=== PATIENT | male | born 1995 | race Caucasian/White ===

== ENCOUNTER 2017-06-13 23:20 | Emergency (ER) | payer OTHER ==
[~2017-06-13] VITALS: Ht 175.3 cm; Wt 77.7 kg
[2017-06-13 23:28] VITALS: BP 108/71; PULSE 91; TEMP 36.8; O2SAT 98; Ht 175.3 cm; Wt 77.7 kg
[2017-06-13] MEDS ORDERED: AMOXICILLIN 250 MG CAP PO STA (23:49)
[2017-06-13] MEDS ORDERED: AMOX500C3 PO (23:52)
--- NOTE | 2017-06-14 00:06 | EMERGENCY ROOM VISIT NOTE ---
History First contact with patient: 23:37 Chief Complaint: DENTAL PAIN Stated Complaint: CHIPPED TOOTH Nursing Triage Summary: pt was playing [employer] with friends and took the handle of a broom to the mouth which chipped his upper right front tooth, pt c/o some sensitivity when breathing in History of Present Illness The patient is a 21 year old male who presents to the Emergency Room with complaints of dental fracture after getting hit in the mouth by a broom while playing broom ball tonight. No alcohol tonight. Patient denies head injury, facial pain, swallowing the tooth, jaw pain, neck pain, loss of consciousness or any other medical complaints. Tetanus is current. He does not have a dentist in the area. Review of Systems See HPI for pertinent positives & negatives. A total of 6 systems reviewed and were otherwise negative. Past Medical/Surgical History None Social History Smoking Status: Never Smoker Smokeless Tobacco Use: No Alcohol Use: none Drug Use: none Occupation Status: [employer] student Current/Historical Medications Scheduled Amoxicillin (Amoxil), 500 MG PO TID Physical Exam Vital Signs Date Time Temp Pulse Resp B/P (MAP) Pulse Ox O2 Delivery O2 Flow Rate FiO2 06/13/17 23:28 36.8 91 18 108/71 98 Room Air Physical Exam PHYSICAL EXAM: VITALS: Vitals are noted on the nurse's note and reviewed by myself. Vital signs stable. GENERAL: Pleasant male, in no acute distress, nondiaphoretic, well-developed well-nourished. SKIN: The skin was without obvious lacerations or abrasions. Capillary reflex less than 2 seconds. HEAD: Normocephalic atraumatic. EARS: External auditory canals clear, tympanic membranes pearly burciaga without erythema or effusion bilaterally. No hemotympanums. No juarez sign. No mastoid tenderness. EYES: Pupils equal round and reactive to light and accommodation. Conjunctivae without injection, sclerae without icterus. Extraocular movements intact. NOSE: Patent, turbinates without inflammation or discharge. No sinus tenderness. No septal hematoma or bleeding. FACE: No facial bone tenderness. Full range of motion of the jaw without tenderness. MOUTH: Mucous membranes moist. Pharynx without erythema or exudate. Uvula midline. Airway patent. Tongue does not deviate. Dental exam: Right upper central incisor with dental fracture to the dentine that is not loose. No other injuries noted. Overall dental hygiene good. No bleeding NECK: Supple without nuchal rigidity. Cervical spine is nontender. Full range of motion of the neck without tenderness. No JVD. HEART: Regular rate and rhythm without murmurs gallops or rubs. LUNGS: Clear to auscultation bilaterally without wheezes, rales or rhonchi. No dullness to percussion. No retractions or accessory muscle use. MUSCULOSKELETAL: No erythema, edema or atrophy to extremities. NEURO: Patient was alert and oriented to person place and time. No focal neurological deficits. Medical Decision & Procedures Medications Administered Medications (Trade) Dose Ordered Sig/Malcolm Route Start Time Stop Time Status Last Admin Dose Admin Amoxicillin (Amoxil Cap) 1,500 mg NOW STAT PO 06/13/17 23:49 06/13/17 23:50 DC 06/13/17 23:49 1,500 MG ED Course Prior records reviewed and summarized as above. Triage Nursing notes reviewed. Additional history obtained from friends The patient's history was concerning for dental injury Differential diagnosis: Etiologies such as dental fracture, dental trauma, facial injury, as well as others were entertained.. Physical examination: Dental fracture to the dentine ER treatment provided: Dental wax was applied and patient was given wax to go home with. He was started on antibiotics. On reassessment the patient felt better. Diagnostics interpreted by me: Deferred This appears to be dental fracture. Patient was strongly encouraged to see oral surgeon for definitive care for his dental injury. He was given contact information. He was started on antibiotics. The tooth was covered in wax as it extended to the dentine. Patient is advised to return to the ER immediately for fevers, pain, worsening signs or symptoms or as needed. Patient was neurovascularly and neurologically intact. No other injuries noted. He is well -appearing. By the evaluation outlined above emergent etiologies such as open fracture, as well as others were deemed relatively unlikely. The pt informed about the findings as listed above. All questions were answered and pleased with the treatment. Return instructions were outlined and the patient was discharged in stable condition. Outpatient prescription management: Amoxicillin Referral: The patient was referred to oral surgery for follow-up in 2 to 3 days for a recheck of the current condition. Medical Decision As above Medication Reconcilliation Current Medication List: was personally reviewed by me Blood Pressure Screening Patient's blood pressure: Normal blood pressure Impression Primary Impression: Fractured tooth Departure Information Dispostion Home / Self-Care Condition GOOD Prescriptions Amoxicillin (AMOXIL) 500 Mg Cap 500 MG PO TID for 10 Days, #30 CAP Prov: Luci Rodriguez .SAJI 06/13/17 Referrals Francisco Flores D.D.SStefani No Doctor, Assigned [facility] (PCP) Forms HOME CARE DOCUMENTATION FORM, IMPORTANT VISIT INFORMATION Patient Instructions My [facility], ED Fx Tooth Additional Instructions Use wax frequently to keep the tooth covered. Avoid hot or cold foods as this will increase the pain. Amoxicillin 500mg: Take one pill 3 times daily for 10 days for your infection. All antibiotics can cause diarrhea. If this occurs and you feel worse or it does not resolve in 1-2 days follow up with your doctor or return to the Emergency Department as this could be signs of serious underlying problems. Any medication can cause an allergic reaction, stop the pills immediately and return to the ER for rash, hives, breathing difficulties, or swelling. Ibuprofen(Motrin, Advil) may be used for fever or pain. Use 600mg every six hours as needed. Take with food. Avoid using more than 2400mg in a 24 hour period. Do not use 2400mg per day for more than three consecutive days without physician direction. Prolonged inappropriate use can lead to stomach upset or ulcers. This medication can be taken if you need to drive, work, or perform activities which may be dangerous when taking narcotic pain medication. (AND/OR) Acetaminophen(Tylenol) may be used for fever or pain. Use 1000mg every six hours as needed. Avoid using more than 3000mg in a 24 hour period. This medication can be taken if you need to drive, work, or perform activities which may be dangerous when taking narcotic pain medication. [place] teeth twice a day, floss daily and do warm saltwater gargles 3 times a day. Follow-up with oral surgery and 2-3 days for definitive care for your dental problem. Return to ER sooner for facial swelling, fever, redness, worsening signs or symptoms or as needed. Problem Qualifiers Primary Impression: Fractured tooth Encounter type: initial encounter Fracture type: closed Qualified Codes: S02.5XXA - Fracture of tooth (traumatic), initial encounter for closed fracture
== END 2017-06-14 00:06 | disposition home or self-care (01) ==
LOC: C.EDB 23:22 → C.EDC 06-14 00:06
DX: S02.5XXA Fracture of tooth (traumatic), initial encounter for closed fracture (principal); W22.8XXA Striking against or struck by other objects, initial encounter; Y93.89 Activity, other specified; Y99.8 Other external cause status